=== PATIENT | female | born 1990 | race African-American/Black ===

== ENCOUNTER 2017-06-28 08:21 | Inpatient (IN) | payer MEDICAID, OTHER ==
[~2017-06-28] VITALS: Ht 180.3 cm; Wt 64.6 kg
[~2017-06-28 08:21] MED LIST: DIVA500T52 PO; LORA1TAB3 PO; OLAN10TA3 PO
[2017-06-28 09:00] LABS: ANION GAP 12 mmol/L (8-16); CALCIUM, TOTAL 9.4 mg/dL (8.8-10.5); CARBON DIOXIDE 24 mmol/L (22-29); CHLORIDE 105 mmol/L (98-107); CREATININE 0.91 mg/dL (0.60-1.30); GLOMERULAR FILTR. RATE CALC > 60 mL/min (>60); POTASSIUM 3.6 mmol/L (3.5-5.1); SODIUM SERUM 141 mmol/L (136-145); UREA NITROGEN, BLOOD 15 mg/dL (7-18)
[2017-06-28 09:06] LABS: ALANINE AMINOTRANSFERASE 22 U/L (12-78); ALBUMIN 4.7 g/dL (3.4-5.0); ASPARTATE AMINOTRANSFERASE 24 U/L (15-37); BILIRUBIN,TOTAL 0.6 mg/dL (0.1-1.0)
[2017-06-28 09:17] LABS: BASOPHILS % (AUTO) 0.1 % (0.0-2.0); EOSINOPHILS % (AUTO) 0.1 % (1.0-6.0); HEMATOCRIT 39.8 % (36-46); HEMOGLOBIN 13.6 g/dL (12.0-16.0); LYMPHOCYTES # (AUTO) 3.5 K/uL (1.0-4.8); LYMPHOCYTES % (AUTO) 27.3 % (22.0-44.0); MEAN CORPUSCULAR HEMOGLOBIN 28.7 pg (26.0-34.0); MEAN CORPUSCULAR HGB CONC 34.2 G/dL (31.0-37.0); MEAN CORPUSCULAR VOLUME 84 fL (80-100); MONOCYTES # (AUTO) 0.9 K/uL (0.1-1.0); MONOCYTES % (AUTO) 6.9 % (2.0-9.0); NEUTROPHILS # (AUTO) 8.4 K/uL (1.8-7.7); NEUTROPHILS % (AUTO) 65.6 % (40.0-70.0); PLATELET COUNT (AUTO) 370 K/uL (150-450); RED BLOOD CELL COUNT(AUTO) 4.74 MIL/uL (4.00-5.20); WHITE BLOOD COUNT (AUTO) 12.8 K/uL (4.5-11.0)
[2017-06-28 09:37] LABS: VALPROIC ACID 3 mcg/mL (50-100)
[2017-06-28] MEDS ORDERED: OLANZapine 5 MG TABLET PO ONE (09:45)
[2017-06-28] MEDS ORDERED: LORazepam 2 MG TABLET PO PRN (10:15)
[2017-06-28] MEDS ORDERED: HALOPERIDOL 5 MG TABLET PO PRN (10:15)
[2017-06-28] MEDS ORDERED: ZOLPIDEM TARTRATE 10 MG TABLET PO PRN (10:15)
[2017-06-28] MEDS ORDERED: INFLUENZA VIRUS VACCINE QVS 2017-18 (3YR+)/PF 60 MCG/0.5 ML SYRINGE IM ONE (15:00)
[2017-06-28 16:40] VITALS: BP 104/60
[2017-06-28] MEDS: DIVALPROEX SODIUM 500 MG ER TABLET PO SCH (20:30)
[2017-06-28] MEDS: OLANZapine 10 MG TABLET PO SCH (20:31)
[2017-06-29 06:29] VITALS: BP 106/60
[2017-06-29 08:19] LABS: BASOPHILS % (AUTO) 0.4 % (0.0-2.0); EOSINOPHILS % (AUTO) 2.3 % (1.0-6.0); HEMATOCRIT 36.4 % (36-46); HEMOGLOBIN 12.3 g/dL (12.0-16.0); LYMPHOCYTES % (AUTO) 46.3 % (22.0-44.0); MEAN CORPUSCULAR HEMOGLOBIN 28.6 pg (26.0-34.0); MEAN CORPUSCULAR HGB CONC 33.8 G/dL (31.0-37.0); MEAN CORPUSCULAR VOLUME 85 fL (80-100); MONOCYTES # (AUTO) 0.7 K/uL (0.1-1.0); MONOCYTES % (AUTO) 7.9 % (2.0-9.0); NEUTROPHILS # (AUTO) 3.7 K/uL (1.8-7.7); NEUTROPHILS % (AUTO) 43.1 % (40.0-70.0); PLATELET COUNT (AUTO) 268 K/uL (150-450); RED CELL DISTRIBUTION WIDTH 13.2 % (11.5-14.5); WHITE BLOOD COUNT (AUTO) 8.5 K/uL (4.5-11.0)
[2017-06-29 09:18] VITALS: BP 118/77
[2017-06-29 16:18] VITALS: BP 112/70
[2017-06-29] MEDS: DIVALPROEX SODIUM 500 MG ER TABLET PO SCH (20:27)
[2017-06-29] MEDS: OLANZapine 10 MG TABLET PO SCH (20:27)
[2017-06-30 01:17] VITALS: BP 103/63
[2017-06-30 09:05] VITALS: BP 100/60
[2017-06-30 16:04] VITALS: BP 104/62
[2017-06-30] MEDS: OLANZapine 10 MG TABLET PO SCH (20:17)
[2017-06-30] MEDS: DIVALPROEX SODIUM 500 MG ER TABLET PO SCH (20:17)
[2017-07-01 00:27] VITALS: BP 128/62
[2017-07-01 08:33] VITALS: BP 113/69
[2017-07-01 16:10] VITALS: BP 112/69
[2017-07-01] MEDS: DIVALPROEX SODIUM 500 MG ER TABLET PO SCH (20:53)
[2017-07-01] MEDS: OLANZapine 10 MG TABLET PO SCH (20:54)
[2017-07-02 01:22] VITALS: BP 110/69
[2017-07-02] MEDS: ACETAMINOPHEN 325 MG TABLET PO PRN ×2 (01:29→22:42)
[2017-07-02 08:21] VITALS: BP 121/62
[2017-07-02 16:14] VITALS: BP 105/60
[2017-07-02] MEDS: OLANZapine 10 MG TABLET PO SCH (20:26)
[2017-07-02] MEDS: DIVALPROEX SODIUM 500 MG ER TABLET PO SCH (20:26)
[2017-07-02 22:42] VITALS: BP 128/68
[2017-07-03 00:42] VITALS: BP 117/62
[2017-07-03 09:04] VITALS: BP 119/65
[2017-07-03 16:06] VITALS: BP 113/75
[2017-07-03] MEDS: DIVALPROEX SODIUM 500 MG ER TABLET PO SCH (21:02)
[2017-07-03] MEDS: OLANZapine 10 MG TABLET PO SCH (21:02)
[2017-07-04 00:58] VITALS: BP 110/61
[2017-07-04] MEDS: ACETAMINOPHEN 325 MG TABLET PO PRN (01:32)
[2017-07-04 08:57] VITALS: BP 120/63
[2017-07-04 16:36] VITALS: BP 119/73
[2017-07-04] MEDS: DIVALPROEX SODIUM 500 MG ER TABLET PO SCH (20:47)
[2017-07-04] MEDS: OLANZapine 10 MG TABLET PO SCH (20:47)
[2017-07-05 08:58] VITALS: BP 106/55
[2017-07-05 12:42] VITALS: BP 103/56
== END 2017-07-05 14:40 | disposition home or self-care (01) | DRG 750 ==
LOC: EMS 08:22 → B2S 13:19
DX: F20.0 Paranoid schizophrenia (principal); F15.20 Other stimulant dependence, uncomplicated; F12.20 Cannabis dependence, uncomplicated; F10.10 Alcohol abuse, uncomplicated; D72.829 Elevated white blood cell count, unspecified; F42.9 Obsessive-compulsive disorder, unspecified; F41.9 Anxiety disorder, unspecified; F17.210 Nicotine dependence, cigarettes, uncomplicated; Z71.41 Alcohol abuse counseling and surveillance of alcoholic; Z71.51 Drug abuse counseling and surveillance of drug abuser; Z71.6 Tobacco abuse counseling; Z28.21 Immunization not carried out because of patient refusal; Z81.8 Family history of other mental and behavioral disorders; Z81.1 Family history of alcohol abuse and dependence; Z81.3 Family history of other psychoactive substance abuse and dependence; Z79.899 Other long term (current) drug therapy
CPT/HCPCS: 90471; 99285; G0480

== ENCOUNTER 2017-08-04 18:47 | Inpatient (IN) | payer MEDICAID, OTHER ==
[~2017-08-04] VITALS: Ht 180.3 cm; Wt 63.9 kg
[~2017-08-04 18:47] MED LIST changes: -LORA1TAB3 PO
[2017-08-04 19:06] LABS: BASOPHILS % (AUTO) 0.9 % (0.0-2.0); EOSINOPHILS % (AUTO) 3.8 % (1.0-6.0); HEMATOCRIT 39.3 % (36-46); HEMOGLOBIN 13.4 g/dL (12.0-16.0); LYMPHOCYTES # (AUTO) 4.1 K/uL (1.0-4.8); LYMPHOCYTES % (AUTO) 52.9 % (22.0-44.0); MEAN CORPUSCULAR HEMOGLOBIN 28.6 pg (26.0-34.0); MEAN CORPUSCULAR HGB CONC 34.1 G/dL (31.0-37.0); MEAN CORPUSCULAR VOLUME 84 fL (80-100); MONOCYTES # (AUTO) 0.7 K/uL (0.1-1.0); MONOCYTES % (AUTO) 8.8 % (2.0-9.0); NEUTROPHILS # (AUTO) 2.6 K/uL (1.8-7.7); NEUTROPHILS % (AUTO) 33.6 % (40.0-70.0); PLATELET COUNT (AUTO) 345 K/uL (150-450); RED BLOOD CELL COUNT(AUTO) 4.67 MIL/uL (4.00-5.20); RED CELL DISTRIBUTION WIDTH 14.4 % (11.5-14.5); WHITE BLOOD COUNT (AUTO) 7.7 K/uL (4.5-11.0)
[2017-08-04 19:16] LABS: ANION GAP 6 mmol/L (8-16); CALCIUM, TOTAL 8.3 mg/dL (8.8-10.5); CARBON DIOXIDE 25 mmol/L (22-29); CHLORIDE 106 mmol/L (98-107); CREATININE 0.64 mg/dL (0.60-1.30); GLOMERULAR FILTR. RATE CALC > 60 mL/min (>60); POTASSIUM 4.4 mmol/L (3.5-5.1); SODIUM SERUM 137 mmol/L (136-145); UREA NITROGEN, BLOOD 19 mg/dL (7-18)
[2017-08-04 19:22] LABS: ALANINE AMINOTRANSFERASE 22 U/L (12-78); ALBUMIN 3.5 g/dL (3.4-5.0); ASPARTATE AMINOTRANSFERASE 21 U/L (15-37); BILIRUBIN,TOTAL 0.3 mg/dL (0.1-1.0); TOTAL PROTEIN, SERUM 6.4 g/dL (6.4-8.2)
[2017-08-04 19:33] LABS: VALPROIC ACID < 3 mcg/mL (50-100)
[2017-08-04] MEDS ORDERED: LORazepam 2 MG TABLET PO ONE (20:00)
[2017-08-04] MEDS ORDERED: HALOPERIDOL 5 MG TABLET PO ONE (20:00)
[2017-08-04] MEDS ORDERED: HALOPERIDOL 5 MG TABLET PO PRN (20:30)
[2017-08-04] MEDS ORDERED: ZOLPIDEM TARTRATE 10 MG TABLET PO PRN (20:30)
[2017-08-05 12:44] VITALS: BP 102/63
[2017-08-05 17:14] VITALS: BP 114/54
[2017-08-05] MEDS: LORazepam 2 MG TABLET PO PRN (17:50)
[2017-08-05] MEDS ORDERED: INFLUENZA VIRUS VACCINE QVS 2017-18 (3YR+)/PF 60 MCG/0.5 ML SYRINGE IM ONE (18:30)
[2017-08-05] MEDS: OLANZapine 10 MG TABLET PO SCH (20:38)
[2017-08-05] MEDS: DIVALPROEX SODIUM 500 MG ER TABLET PO SCH (20:38)
[2017-08-06 06:31] VITALS: BP 110/65
[2017-08-06 09:16] VITALS: BP 116/79
[2017-08-06 16:46] VITALS: BP 117/70
[2017-08-06] MEDS: OLANZapine 10 MG TABLET PO SCH (20:33)
[2017-08-06] MEDS: DIVALPROEX SODIUM 500 MG ER TABLET PO SCH (20:33)
[2017-08-07] MEDS: LORazepam 2 MG TABLET PO PRN (00:02)
[2017-08-07 00:07] VITALS: BP 123/67
[2017-08-07 08:44] VITALS: BP 118/64
[2017-08-07 16:50] VITALS: BP 111/82
[2017-08-07] MEDS: DIVALPROEX SODIUM 500 MG ER TABLET PO SCH (20:24)
[2017-08-07] MEDS: OLANZapine 10 MG TABLET PO SCH (20:25)
[2017-08-08 07:06] VITALS: BP 110/72
[2017-08-08 08:04] VITALS: BP 102/57
[2017-08-08 16:00] VITALS: BP 105/64
[2017-08-08] MEDS: DIVALPROEX SODIUM 500 MG ER TABLET PO SCH (20:06)
[2017-08-08] MEDS: OLANZapine 10 MG TABLET PO SCH (20:06)
[2017-08-09 06:20] VITALS: BP 100/63
[2017-08-09 09:00] VITALS: BP 110/68
[2017-08-09 16:05] VITALS: BP 112/73
[2017-08-09] MEDS: OLANZapine 10 MG TABLET PO SCH (20:16)
[2017-08-09] MEDS: DIVALPROEX SODIUM 500 MG ER TABLET PO SCH (20:16)
[2017-08-10 06:21] VITALS: BP 101/63
[2017-08-10 10:00] VITALS: BP 110/74
[2017-08-10 17:16] VITALS: BP 109/63
[2017-08-10] MEDS: OLANZapine 10 MG TABLET PO SCH (20:20)
[2017-08-10] MEDS: DIVALPROEX SODIUM 500 MG ER TABLET PO SCH (20:20)
[2017-08-11 16:17] VITALS: BP 119/73
[2017-08-11] MEDS: DIVALPROEX SODIUM 500 MG ER TABLET PO SCH (20:09)
[2017-08-11] MEDS: OLANZapine 10 MG TABLET PO SCH (20:10)
[2017-08-12 06:35] VITALS: BP 107/63
[2017-08-12 09:00] VITALS: BP 108/59
[2017-08-12 17:13] VITALS: BP 123/80
[2017-08-12] MEDS: DIVALPROEX SODIUM 500 MG ER TABLET PO SCH (20:14)
[2017-08-12] MEDS: OLANZapine 10 MG TABLET PO SCH (20:14)
[2017-08-13 06:52] VITALS: BP 106/66
[2017-08-13 08:30] VITALS: BP 102/67
[2017-08-13 16:26] VITALS: BP 117/67
[2017-08-13] MEDS: OLANZapine 10 MG TABLET PO SCH (20:15)
[2017-08-13] MEDS: DIVALPROEX SODIUM 500 MG ER TABLET PO SCH (20:16)
[2017-08-14 05:44] VITALS: BP 118/66
[2017-08-14 08:38] VITALS: BP 104/63
== END 2017-08-14 12:02 | disposition home or self-care (01) | DRG 750 ==
LOC: EMS 18:49 → AHU 08-05 12:06 → B3A 08-05 17:20
DX: F20.0 Paranoid schizophrenia (principal); Z59.0 Homelessness; F15.10 Other stimulant abuse, uncomplicated; F12.10 Cannabis abuse, uncomplicated; F42.9 Obsessive-compulsive disorder, unspecified; F17.210 Nicotine dependence, cigarettes, uncomplicated; F41.9 Anxiety disorder, unspecified; F10.10 Alcohol abuse, uncomplicated; Z71.6 Tobacco abuse counseling; Z79.899 Other long term (current) drug therapy; Z91.5 Personal history of self-harm
CPT/HCPCS: 87081; 99285; 99406; G0480

== ENCOUNTER 2017-09-24 12:26 | Inpatient (IN) | payer MEDICAID, OTHER ==
[~2017-09-24] VITALS: Ht 180.3 cm; Wt 62.9 kg
[2017-09-24 13:13] LABS: BASOPHILS % (AUTO) 0.9 % (0.0-2.0); EOSINOPHILS % (AUTO) 1.1 % (1.0-6.0); HEMATOCRIT 40.5 % (36-46); HEMOGLOBIN 13.3 g/dL (12.0-16.0); LYMPHOCYTES # (AUTO) 2.5 K/uL (1.0-4.8); LYMPHOCYTES % (AUTO) 38.9 % (22.0-44.0); MEAN CORPUSCULAR HEMOGLOBIN 28.4 pg (26.0-34.0); MEAN CORPUSCULAR HGB CONC 32.9 G/dL (31.0-37.0); MEAN CORPUSCULAR VOLUME 86 fL (80-100); MONOCYTES # (AUTO) 0.5 K/uL (0.1-1.0); MONOCYTES % (AUTO) 7.5 % (2.0-9.0); NEUTROPHILS # (AUTO) 3.3 K/uL (1.8-7.7); NEUTROPHILS % (AUTO) 51.6 % (40.0-70.0); PLATELET COUNT (AUTO) 357 K/uL (150-450); RED BLOOD CELL COUNT(AUTO) 4.69 MIL/uL (4.00-5.20); RED CELL DISTRIBUTION WIDTH 14.4 % (11.5-14.5)
[2017-09-24 13:33] LABS: AMPHET/METH SCREEN,URINE POSITIVE (NEGATIVE); BARBITURATE SCREEN, URINE NEGATIVE (NEGATIVE); BENZODIAZEPINES SCREEN,URINE NEGATIVE (NEGATIVE); CANNABINOID SCREEN,URINE POSITIVE (NEGATIVE); COCAINE SCREEN,URINE NEGATIVE (NEGATIVE); METHADONE SCREEN, URINE NEGATIVE (NEGATIVE); OPIATE SCREEN,URINE NEGATIVE (NEGATIVE); PHENCYCLIDINE SCREEN,URINE NEGATIVE (NEGATIVE)
[2017-09-24 13:34] LABS: ANION GAP 6 mmol/L (8-16); CALCIUM, TOTAL 8.5 mg/dL (8.8-10.5); CARBON DIOXIDE 28 mmol/L (22-29); CHLORIDE 105 mmol/L (98-107); CREATININE 0.69 mg/dL (0.60-1.30); GLOMERULAR FILTR. RATE CALC > 60 mL/min (>60); GLUCOSE,RANDOM 89 mg/dL (70-110); SODIUM SERUM 139 mmol/L (136-145); UREA NITROGEN, BLOOD 10 mg/dL (7-18)
[2017-09-24 13:36] LABS: ALANINE AMINOTRANSFERASE 26 U/L (12-78); ALBUMIN 3.7 g/dL (3.4-5.0); ALKALINE PHOSPHATASE 55 U/L (46-116); ASPARTATE AMINOTRANSFERASE 16 U/L (15-37); BILIRUBIN,TOTAL 0.6 mg/dL (0.1-1.0); TOTAL PROTEIN, SERUM 6.7 g/dL (6.4-8.2)
[2017-09-24 13:49] LABS: VALPROIC ACID < 3 mcg/mL (50-100)
[2017-09-24] MEDS ORDERED: ZOLPIDEM TARTRATE 10 MG TABLET PO PRN (14:00)
[2017-09-24] MEDS ORDERED: HALOPERIDOL 5 MG TABLET PO PRN (14:00)
[2017-09-24 18:02] VITALS: BP 111/66
[2017-09-25 09:01] LABS: CHOL/HDL RATIO 3.3 (3.9-5.7)
[2017-09-25 16:19] VITALS: BP 116/70
[2017-09-25] MEDS: RisperiDONE 1 MG TABLET PO SCH (16:24)
[2017-09-25] MEDS: LORazepam 2 MG TABLET PO PRN (16:24)
[2017-09-26] MEDS: RisperiDONE 1 MG TABLET PO SCH ×2 (08:46→16:06)
[2017-09-26] MEDS: LORazepam 2 MG TABLET PO PRN (09:39)
[2017-09-26 09:46] VITALS: BP 116/66
[2017-09-26 16:31] VITALS: BP 105/73
[2017-09-27 07:17] VITALS: BP 112/62
[2017-09-27] MEDS: RisperiDONE 1 MG TABLET PO SCH ×2 (08:20→16:00)
[2017-09-27 09:00] VITALS: BP 94/75
[2017-09-27] MEDS ORDERED: RISP1 PO ×2 (10:52→10:53)
[2017-09-27 16:05] VITALS: BP 116/72
== END 2017-09-27 16:50 | disposition home or self-care (01) | DRG 750 ==
LOC: EMS 12:27 → B3A 16:51
PROVIDERS: ADMIT Psychiatry & Neurology Psychiatry; ATTEND Psychiatry & Neurology Psychiatry
DX: F20.0 Paranoid schizophrenia (principal); F15.20 Other stimulant dependence, uncomplicated; F10.10 Alcohol abuse, uncomplicated; F17.200 Nicotine dependence, unspecified, uncomplicated; F42.9 Obsessive-compulsive disorder, unspecified; Z79.899 Other long term (current) drug therapy; Z91.19 Patient's noncompliance with other medical treatment and regimen; Z71.6 Tobacco abuse counseling; Z71.41 Alcohol abuse counseling and surveillance of alcoholic; Z71.51 Drug abuse counseling and surveillance of drug abuser
CPT/HCPCS: 99285; G0480

== ENCOUNTER 2017-10-13 11:32 | Inpatient (IN) | payer MEDICAID, OTHER ==
[~2017-10-13] VITALS: Ht 185.4 cm; Wt 63.4 kg
[~2017-10-13 11:32] MED LIST changes: -DIVA500T52 PO; -OLAN10TA3 PO; +RISP1 PO
[2017-10-13 12:00] LABS: RED BLOOD CELL COUNT(AUTO) 4.85 MIL/uL (4.00-5.20)
[2017-10-13] MEDS ORDERED: HALOPERIDOL LACTATE 5 MG/ML VIAL IM ONE (12:00)
[2017-10-13] MEDS ORDERED: DiphenhydrAMINE HCL 50 MG/ML VIAL IM ONE (12:00)
[2017-10-13] MEDS ORDERED: LORazepam 2 MG/ML VIAL IM ONE (12:00)
[2017-10-13 12:01] LABS: BASOPHILS % (AUTO) 0.2 % (0.0-2.0); EOSINOPHILS % (AUTO) 0.2 % (1.0-6.0); HEMATOCRIT 40.5 % (36-46); HEMOGLOBIN 13.7 g/dL (12.0-16.0); LYMPHOCYTES # (AUTO) 2.9 K/uL (1.0-4.8); LYMPHOCYTES % (AUTO) 29.2 % (22.0-44.0); MEAN CORPUSCULAR HEMOGLOBIN 28.2 pg (26.0-34.0); MEAN CORPUSCULAR HGB CONC 33.8 G/dL (31.0-37.0); MEAN CORPUSCULAR VOLUME 83 fL (80-100); MONOCYTES # (AUTO) 0.9 K/uL (0.1-1.0); MONOCYTES % (AUTO) 9.1 % (2.0-9.0); NEUTROPHILS # (AUTO) 6.1 K/uL (1.8-7.7); NEUTROPHILS % (AUTO) 61.3 % (40.0-70.0); PLATELET COUNT (AUTO) 385 K/uL (150-450); RED CELL DISTRIBUTION WIDTH 13.5 % (11.5-14.5)
[2017-10-13 12:27] LABS: ANION GAP 12 mmol/L (8-16); CALCIUM, TOTAL 9.4 mg/dL (8.8-10.5); CARBON DIOXIDE 27 mmol/L (22-29); CHLORIDE 104 mmol/L (98-107); CREATININE 0.63 mg/dL (0.60-1.30); GLOMERULAR FILTR. RATE CALC > 60 mL/min (>60); GLUCOSE,RANDOM 100 mg/dL (70-110); POTASSIUM 3.8 mmol/L (3.5-5.1); SODIUM SERUM 143 mmol/L (136-145); UREA NITROGEN, BLOOD 14 mg/dL (7-18)
[2017-10-13 12:34] LABS: ALANINE AMINOTRANSFERASE 34 U/L (12-78); ALBUMIN 4.6 g/dL (3.4-5.0); ALKALINE PHOSPHATASE 57 U/L (46-116); ASPARTATE AMINOTRANSFERASE 26 U/L (15-37); BILIRUBIN,TOTAL 0.6 mg/dL (0.1-1.0); TOTAL PROTEIN, SERUM 8.1 g/dL (6.4-8.2)
[2017-10-13] MEDS ORDERED: HALOPERIDOL 5 MG TABLET PO PRN (12:45)
[2017-10-13] MEDS ORDERED: ZOLPIDEM TARTRATE 10 MG TABLET PO PRN (12:45)
[2017-10-13 12:51] LABS: HCG,QUANTITATIVE < 1 mIU/mL (0-6)
[2017-10-13 12:54] LABS: HCG,QUAL RESULT NEGATIVE (NEGATIVE)
[2017-10-13 12:58] LABS: AMPHET/METH SCREEN,URINE POSITIVE (NEGATIVE); BARBITURATE SCREEN, URINE NEGATIVE (NEGATIVE); BENZODIAZEPINES SCREEN,URINE NEGATIVE (NEGATIVE); CANNABINOID SCREEN,URINE POSITIVE (NEGATIVE); COCAINE SCREEN,URINE NEGATIVE (NEGATIVE); METHADONE SCREEN, URINE NEGATIVE (NEGATIVE); OPIATE SCREEN,URINE NEGATIVE (NEGATIVE)
[2017-10-13 13:00] LABS: PHENCYCLIDINE SCREEN,URINE NEGATIVE (NEGATIVE)
[2017-10-13 14:40] VITALS: BP 112/70
[2017-10-14 08:02] VITALS: BP 116/63
[2017-10-14 08:07] LABS: FREE T4 (FREE THYROXINE) 1.08 ng/dL (0.76-1.46); THYROID STIMULATING HORMONE 1.54 uIU/mL (0.36-3.74)
[2017-10-14] MEDS: RisperiDONE 1 MG TABLET PO SCH ×2 (09:00→16:32)
[2017-10-14 16:00] VITALS: BP 110/67
[2017-10-14] MEDS: LORazepam 2 MG TABLET PO PRN (16:32)
[2017-10-14] MEDS ORDERED: IBUPROFEN 400 MG TABLET PO PRN (20:45)
[2017-10-15 08:10] VITALS: BP 100/60
[2017-10-15] MEDS: RisperiDONE 1 MG TABLET PO SCH ×2 (08:35→16:10)
[2017-10-15 16:05] VITALS: BP 110/76
[2017-10-16 02:35] VITALS: BP 100/61
[2017-10-16] MEDS: LORazepam 2 MG TABLET PO PRN (06:15)
[2017-10-16 08:18] VITALS: BP 102/61
[2017-10-16] MEDS: RisperiDONE 1 MG TABLET PO SCH (08:47)
[2017-10-16 16:06] VITALS: BP 146/80
[2017-10-16] MEDS: RisperiDONE 2 MG TABLET PO SCH (16:49)
[2017-10-17 06:17] VITALS: BP 109/84
[2017-10-17] MEDS: LORazepam 2 MG TABLET PO PRN ×2 (08:00→18:33)
[2017-10-17] MEDS: RisperiDONE 2 MG TABLET PO SCH ×3 (08:00→18:33)
[2017-10-17 08:24] VITALS: BP 118/72
[2017-10-17] MEDS: ACETAMINOPHEN 325 MG TABLET PO PRN ×2 (18:05→18:25)
[2017-10-18] MEDS: RisperiDONE 2 MG TABLET PO SCH (08:16)
[2017-10-18] MEDS ORDERED: RisperiDONE MICROSPHERES 25 MG/2 ML SYRINGE IM SCH (09:00)
[2017-10-18] MEDS ORDERED: RISPC25 IM (11:09)
== END 2017-10-18 11:55 | disposition home or self-care (01) | DRG 750 ==
LOC: EMS 11:35 → B3A 13:39
PROVIDERS: ADMIT Psychiatry & Neurology Psychiatry; ATTEND Psychiatry & Neurology Psychiatry
DX: F20.0 Paranoid schizophrenia (principal); Z91.19 Patient's noncompliance with other medical treatment and regimen; F15.10 Other stimulant abuse, uncomplicated; F10.10 Alcohol abuse, uncomplicated; F17.200 Nicotine dependence, unspecified, uncomplicated; F42.9 Obsessive-compulsive disorder, unspecified; F19.10 Other psychoactive substance abuse, uncomplicated
CPT/HCPCS: 84439; 84443; 87081; 96372; 99285; G0480; J1200; J1630; J2060; J2794

== ENCOUNTER 2018-10-29 09:16 | Inpatient (IN) | payer MEDICAID, OTHER ==
[~2018-10-29] VITALS: Ht 180.3 cm; Wt 66.3 kg
[~2018-10-29 09:16] MED LIST changes: +RISPC25 IM
[2018-10-29] MEDS ORDERED: DIVA-76 PO (09:57)
[2018-10-29] MEDS ORDERED: OLAN5TAB2 PO (09:57)
[2018-10-29 10:20] LABS: BASOPHILS % (AUTO) 0.3 % (0.0-2.0); EOSINOPHILS % (AUTO) 0.2 % (1.0-6.0); HEMATOCRIT 38.6 % (36-46); HEMOGLOBIN 13.1 g/dL (12.0-16.0); LYMPHOCYTES # (AUTO) 2.5 K/uL (1.0-4.8); LYMPHOCYTES % (AUTO) 29.2 % (22.0-44.0); MEAN CORPUSCULAR HEMOGLOBIN 29.1 pg (26.0-34.0); MEAN CORPUSCULAR HGB CONC 33.9 G/dL (31.0-37.0); MEAN CORPUSCULAR VOLUME 86 fL (80-100); MONOCYTES # (AUTO) 0.5 K/uL (0.1-1.0); MONOCYTES % (AUTO) 6.4 % (2.0-9.0); NEUTROPHILS # (AUTO) 5.4 K/uL (1.8-7.7); NEUTROPHILS % (AUTO) 63.9 % (40.0-70.0); PLATELET COUNT (AUTO) 246 K/uL (150-450); RED CELL DISTRIBUTION WIDTH 13.7 % (11.5-14.5)
[2018-10-29 10:38] LABS: AMPHET/METH SCREEN,URINE POSITIVE (NEGATIVE); BARBITURATE SCREEN, URINE NEGATIVE (NEGATIVE); BENZODIAZEPINES SCREEN,URINE NEGATIVE (NEGATIVE); CANNABINOID SCREEN,URINE POSITIVE (NEGATIVE); COCAINE SCREEN,URINE NEGATIVE (NEGATIVE); METHADONE SCREEN, URINE NEGATIVE (NEGATIVE); OPIATE SCREEN,URINE NEGATIVE (NEGATIVE)
[2018-10-29 10:46] LABS: ANION GAP 3 mmol/L (8-16); CALCIUM, TOTAL 8.8 mg/dL (8.8-10.5); CARBON DIOXIDE 30 mmol/L (22-29); CHLORIDE 104 mmol/L (98-107); CREATININE 0.71 mg/dL (0.60-1.30); GLOMERULAR FILTR. RATE CALC > 60 mL/min (>60); GLUCOSE,RANDOM 82 mg/dL (70-110); POTASSIUM 4.2 mmol/L (3.5-5.1); SODIUM SERUM 137 mmol/L (136-145); UREA NITROGEN, BLOOD 17 mg/dL (7-18)
[2018-10-29 10:46] LABS: PHENCYCLIDINE SCREEN,URINE NEGATIVE (NEGATIVE)
[2018-10-29 10:49] LABS: APPEARANCE,URINE CLOUDY (CLEAR); BILIRUBIN,URINE NEGATIVE (NEGATIVE); GLUCOSE, URINE (UA) NEGATIVE (NEGATIVE); KETONES,URINE NEGATIVE (NEGATIVE); LEUKOCYTE ESTERASE ,URINE NEGATIVE (NEGATIVE); NITRATE,URINE NEGATIVE (NEGATIVE); OCCULT BLOOD,URINE NEGATIVE (NEGATIVE); PROTEIN,URINE NEGATIVE (NEGATIVE); UROBILINOGEN,URINE 0.2 mg/dL (<=1.0)
[2018-10-29 10:53] LABS: ALANINE AMINOTRANSFERASE 15 U/L (12-78); ALBUMIN 3.5 g/dL (3.4-5.0); ALKALINE PHOSPHATASE 38 U/L (46-116); ASPARTATE AMINOTRANSFERASE 14 U/L (15-37); BILIRUBIN,TOTAL 0.3 mg/dL (0.1-1.0); TOTAL PROTEIN, SERUM 6.7 g/dL (6.4-8.2)
[2018-10-29 10:59] LABS: BACTERIA,URINE None Seen /HPF (None Seen); RBC,URINE None Seen /HPF (0-2); SQUAMOUS EPITHELIAL CELL,UR Many /LPF (None Seen); WBC,URINE None Seen /HPF (0-5)
[2018-10-29] MEDS ORDERED: ZOLPIDEM TARTRATE 10 MG TABLET PO PRN (11:00)
[2018-10-29] MEDS ORDERED: LORazepam 2 MG TABLET PO PRN (11:00)
[2018-10-29] MEDS ORDERED: HALOPERIDOL 5 MG TABLET PO PRN (11:00)
[2018-10-29 11:44] LABS: VALPROIC ACID 93 mcg/mL (50-100)
[2018-10-29 22:24] VITALS: BP 117/72
[2018-10-29] MEDS ORDERED: PNEUMOCOCCAL VACCINE POLYVALENT 0.5 ML VIAL [PPSV23] IM ONE (22:30)
[2018-10-30] MEDS ORDERED: IBUPROFEN 600 MG TABLET PO PRN (06:00)
[2018-10-30] MEDS ORDERED: ALBUTEROL SULFATE HFA 90 MCG/PUFF 8 GM INHALER IH PRN (06:00)
[2018-10-30] MEDS ORDERED: PETROLATUM,WHITE 71 GM JELLY TP PRN (06:00)
[2018-10-30] MEDS ORDERED: CloNIDine HCL 0.1 MG TABLET PO PRN (06:00)
[2018-10-30] MEDS ORDERED: MAGNESIUM HYDROXIDE SUSPENSION 30 ML UDCUP PO PRN (06:00)
[2018-10-30] MEDS ORDERED: ACETAMINOPHEN 325 MG TABLET PO PRN (06:00)
[2018-10-30] MEDS ORDERED: BENZOCAINE/MENTHOL LOZENGE MM PRN (06:00)
[2018-10-30] MEDS ORDERED: MAG HYDROX/AL HYDROX/SIMETH ES 30 ML SUSPENSION UDCUP PO PRN (06:00)
[2018-10-30] MEDS ORDERED: BACITRACIN 28.4 GM OINTMENT TP PRN (06:00)
[2018-10-30] MEDS ORDERED: ONDANSETRON HCL 4 MG TABLET PO PRN (06:00)
[2018-10-30] MEDS ORDERED: LOPERAMIDE HCL 2 MG CAPSULE PO PRN (06:00)
[2018-10-30 08:18] VITALS: BP 96/66
[2018-10-30] MEDS: OMEPRAZOLE 20 MG CAPSULE PO SCH (08:23)
[2018-10-30] MEDS: DOCUSATE SODIUM 100 MG CAPSULE PO SCH (08:23)
[2018-10-30] MEDS ORDERED: DIVALPROEX SODIUM 500 MG ER TABLET PO SCH (09:00)
[2018-10-30] MEDS ORDERED: OLANZapine 5 MG TABLET PO SCH (21:00)
[2018-10-30] MEDS ORDERED: OLANZapine 7.5 MG TABLET PO SCH (21:00)
[2018-10-31] MEDS: DOCUSATE SODIUM 100 MG CAPSULE PO SCH (08:13)
[2018-10-31] MEDS: OMEPRAZOLE 20 MG CAPSULE PO SCH (08:14)
[2018-10-31] MEDS: DIVALPROEX SODIUM 500 MG ER TABLET PO SCH (08:14)
[2018-10-31] MEDS ORDERED: NALT50TA PO (13:19)
[2018-10-31] MEDS ORDERED: OLAN7.5T9 PO (13:19)
[2018-10-31] MEDS ORDERED: DIVA500T52 PO (13:19)
[2018-10-31] MEDS ORDERED: OLANZapine 10 MG TABLET PO SCH (21:00)
[2018-11-01] MEDS: OMEPRAZOLE 20 MG CAPSULE PO SCH (08:11)
[2018-11-01] MEDS: DOCUSATE SODIUM 100 MG CAPSULE PO SCH (08:11)
[2018-11-01] MEDS: DIVALPROEX SODIUM 500 MG ER TABLET PO SCH (08:11)
[2018-11-01] MEDS ORDERED: DSS100 PO (09:19)
[2018-11-01] MEDS ORDERED: OMEP20 PO (09:19)
== END 2018-11-01 14:30 | disposition home or self-care (01) | DRG 750 ==
LOC: EMS 09:17 → 3EC 16:42
PROVIDERS: ADMIT Psychiatry & Neurology Psychiatry; ATTEND Psychiatry & Neurology Psychiatry
DX: F25.0 Schizoaffective disorder, bipolar type (principal); R45.851 Suicidal ideations; F39 Unspecified mood [affective] disorder; F17.200 Nicotine dependence, unspecified, uncomplicated; F41.9 Anxiety disorder, unspecified; F42.9 Obsessive-compulsive disorder, unspecified; G47.00 Insomnia, unspecified; K59.00 Constipation, unspecified; Z91.19 Patient's noncompliance with other medical treatment and regimen; Z53.20 Procedure and treatment not carried out because of patient's decision for unspecified reasons
CPT/HCPCS: 87081; G0480

== ENCOUNTER 2019-01-03 11:44 | Emergency (ER) | payer MEDICAID, OTHER ==
[~2019-01-03] VITALS: Ht 180.3 cm; Wt 66.3 kg
[~2019-01-03 11:44] MED LIST changes: +DIVA500T52 PO; +DSS100 PO; +NALT50TA PO; +OLAN7.5T9 PO; +OMEP20 PO; -RISP1 PO; -RISPC25 IM
[2019-01-03 11:50] VITALS: BP 143/76
== END 2019-01-03 13:05 | disposition home or self-care (01) ==
LOC: EMS 11:46
DX: L03.116 Cellulitis of left lower limb (principal); F19.10 Other psychoactive substance abuse, uncomplicated; F32.9 Major depressive disorder, single episode, unspecified; F20.9 Schizophrenia, unspecified; F17.210 Nicotine dependence, cigarettes, uncomplicated
CPT/HCPCS: 99406

== ENCOUNTER 2020-05-20 11:09 | Emergency (ER) | payer MEDICAID, OTHER ==
[~2020-05-20] VITALS: Ht 177.8 cm; Wt 75.0 kg
[~2020-05-20 11:09] MED LIST changes: +DIVA-80 PO; -DIVA500T52 PO
[2020-05-20] MEDS ORDERED: RISP2TAB23 PO (11:14)
[2020-05-20 13:17] LABS: BASOPHILS % (AUTO) 0.2 % (0.0-2.0); EOSINOPHILS % (AUTO) 0.3 % (1.0-6.0); HEMATOCRIT 38.9 % (36-46); HEMOGLOBIN 12.7 g/dL (12.0-16.0); LYMPHOCYTES # (AUTO) 2.4 K/uL (1.0-4.8); LYMPHOCYTES % (AUTO) 29.4 % (22.0-44.0); MEAN CORPUSCULAR HEMOGLOBIN 27.4 pg (26.0-34.0); MEAN CORPUSCULAR HGB CONC 32.6 G/dL (31.0-37.0); MEAN CORPUSCULAR VOLUME 84 fL (80-100); MONOCYTES # (AUTO) 0.4 K/uL (0.1-1.0); NEUTROPHILS # (AUTO) 5.3 K/uL (1.8-7.7); NEUTROPHILS % (AUTO) 65.1 % (40.0-70.0); PLATELET COUNT (AUTO) 281 K/uL (150-450); RED BLOOD CELL COUNT(AUTO) 4.63 MIL/uL (4.00-5.20); RED CELL DISTRIBUTION WIDTH 14.3 % (11.5-14.5)
[2020-05-20 13:25] LABS: ANION GAP 10 mmol/L (8-16); CALCIUM, TOTAL 8.7 mg/dL (8.8-10.5); CARBON DIOXIDE 24 mmol/L (22-29); CHLORIDE 102 mmol/L (98-107); CREATININE 0.63 mg/dL (0.60-1.30); GLOMERULAR FILTR. RATE CALC > 60 mL/min (>60); GLUCOSE,RANDOM 91 mg/dL (70-110); POTASSIUM 3.9 mmol/L (3.5-5.1); SODIUM SERUM 136 mmol/L (136-145); UREA NITROGEN, BLOOD 15 mg/dL (7-18)
[2020-05-20 13:38] LABS: ALANINE AMINOTRANSFERASE 20 U/L (12-78); ALKALINE PHOSPHATASE 51 U/L (46-116); ASPARTATE AMINOTRANSFERASE 12 U/L (15-37); BILIRUBIN,TOTAL 0.4 mg/dL (0.1-1.0); HCG,QUANTITATIVE 1 mIU/mL (0-6); TOTAL PROTEIN, SERUM 7.2 g/dL (6.4-8.2)
[2020-05-20 14:17] LABS: AMPHET/METH SCREEN,URINE NEGATIVE (NEGATIVE); BARBITURATE SCREEN, URINE NEGATIVE (NEGATIVE); BENZODIAZEPINES SCREEN,URINE NEGATIVE (NEGATIVE); CANNABINOID SCREEN,URINE POSITIVE (NEGATIVE); COCAINE SCREEN,URINE NEGATIVE (NEGATIVE); METHADONE SCREEN, URINE NEGATIVE (NEGATIVE); OPIATE SCREEN,URINE NEGATIVE (NEGATIVE)
[2020-05-20 14:18] LABS: PHENCYCLIDINE SCREEN,URINE NEGATIVE (NEGATIVE)
[2020-05-20 15:22] VITALS: BP 115/73
== END 2020-05-20 15:26 | disposition home or self-care (01) ==
LOC: EMS 11:15
DX: F20.9 Schizophrenia, unspecified (principal); F32.9 Major depressive disorder, single episode, unspecified; F17.210 Nicotine dependence, cigarettes, uncomplicated; Z79.899 Other long term (current) drug therapy
CPT/HCPCS: 36415; 80053; 80307; 84702; 85025; 99283; G0480

== ENCOUNTER 2020-12-31 18:13 | Inpatient (IN) | payer MEDICAID ==
[~2020-12-31] VITALS: Ht 172.7 cm; Wt 78.4 kg
[~2020-12-31 18:13] MED LIST changes: -DIVA-80 PO; -DSS100 PO; -NALT50TA PO; -OLAN7.5T9 PO; -OMEP20 PO; +RISP2TAB45 PO
[2020-12-31] MEDS ORDERED: HALOPERIDOL 5 MG TABLET PO ONE (18:45)
[2020-12-31] MEDS ORDERED: LORazepam 1 MG TABLET PO ONE (18:45)
[2020-12-31] MEDS ORDERED: ZOLPIDEM TARTRATE 10 MG TABLET PO PRN (19:15)
[2020-12-31 20:05] LABS: BASOPHILS % (AUTO) 0.3 % (0.0-2.0); EOSINOPHILS % (AUTO) 0.7 % (1.0-6.0); HEMATOCRIT 35.6 % (36-46); HEMOGLOBIN 11.7 g/dL (12.0-16.0); LYMPHOCYTES # (AUTO) 2.2 K/uL (1.0-4.8); LYMPHOCYTES % (AUTO) 17.8 % (22.0-44.0); MEAN CORPUSCULAR HEMOGLOBIN 27.3 pg (26.0-34.0); MEAN CORPUSCULAR VOLUME 83 fL (80-100); MONOCYTES # (AUTO) 1.2 K/uL (0.1-1.0); MONOCYTES % (AUTO) 9.3 % (2.0-9.0); NEUTROPHILS # (AUTO) 8.9 K/uL (1.8-7.7); NEUTROPHILS % (AUTO) 71.9 % (40.0-70.0); PLATELET COUNT (AUTO) 318 K/uL (150-450); RED CELL DISTRIBUTION WIDTH 13.5 % (11.5-14.5)
[2020-12-31 20:15] LABS: ANION GAP 11 mmol/L (8-16); CALCIUM, TOTAL 8.6 mg/dL (8.8-10.5); CARBON DIOXIDE 25 mmol/L (22-29); CHLORIDE 104 mmol/L (98-107); CREATININE 0.53 mg/dL (0.60-1.30); GLOMERULAR FILTR. RATE CALC > 60 mL/min (>60); GLUCOSE,RANDOM 89 mg/dL (70-110); POTASSIUM 3.5 mmol/L (3.5-5.1); SODIUM SERUM 140 mmol/L (136-145); UREA NITROGEN, BLOOD 10 mg/dL (7-18)
[2020-12-31 20:21] LABS: ALANINE AMINOTRANSFERASE 16 U/L (12-78); ALBUMIN 3.4 g/dL (3.4-5.0); ALKALINE PHOSPHATASE 62 U/L (46-116); ASPARTATE AMINOTRANSFERASE 12 U/L (15-37); BILIRUBIN,TOTAL 0.3 mg/dL (0.1-1.0); TOTAL PROTEIN, SERUM 6.5 g/dL (6.4-8.2)
[2020-12-31 21:50] LABS: COVID AG,FIA SOURCE NASOPHARYNGEAL
[2020-12-31 22:37] VITALS: BP 124/82
[2021-01-01 07:12] LABS: CHOL/HDL RATIO 3.6 (3.9-5.7)
[2021-01-01 08:00] VITALS: BP 111/76
[2021-01-01] MEDS ORDERED: ALBUTEROL SULFATE HFA 90 MCG/PUFF 8 GM INHALER IH PRN (16:15)
[2021-01-01] MEDS ORDERED: ACETAMINOPHEN 325 MG TABLET PO PRN (16:15)
[2021-01-01] MEDS ORDERED: GuaiFENesin/D-METHORPHAN [SUGAR-FREE] 200-20MG/10 ML SYRUP UDCUP PO PRN (16:15)
[2021-01-01] MEDS ORDERED: CloNIDine HCL 0.1 MG TABLET PO PRN (16:15)
[2021-01-01] MEDS ORDERED: PETROLATUM,WHITE 28 GM JELLY TP PRN (16:15)
[2021-01-01] MEDS ORDERED: NICOTINE 14 MG/24 HOUR PATCH TD PRN (16:15)
[2021-01-01] MEDS ORDERED: LOPERAMIDE HCL 2 MG CAPSULE PO PRN (16:15)
[2021-01-01] MEDS ORDERED: IBUPROFEN 400 MG TABLET PO PRN (16:15)
[2021-01-01] MEDS ORDERED: ONDANSETRON HCL 4 MG TABLET PO PRN (16:15)
[2021-01-01] MEDS ORDERED: DOCUSATE SODIUM 100 MG CAPSULE PO PRN (16:15)
[2021-01-01] MEDS ORDERED: MAG HYDROX/AL HYDROX/SIMETH ES 30 ML SUSPENSION UDCUP PO PRN (16:15)
[2021-01-01] MEDS ORDERED: MAGNESIUM HYDROXIDE SUSPENSION 30 ML UDCUP PO PRN (16:15)
[2021-01-01] MEDS: OLANZapine 5 MG TABLET PO SCH (16:49)
[2021-01-01] MEDS: GABAPENTIN 300 MG CAPSULE PO SCH (16:49)
[2021-01-01] MEDS: LORazepam 2 MG TABLET PO PRN (17:27)
[2021-01-02] MEDS: GABAPENTIN 300 MG CAPSULE PO SCH ×2 (08:12→17:51)
[2021-01-02] MEDS: LORazepam 2 MG TABLET PO PRN (08:12)
[2021-01-02] MEDS: OLANZapine 5 MG TABLET PO SCH ×2 (08:12→17:50)
[2021-01-02 15:30] VITALS: BP 118/71
[2021-01-02 16:51] VITALS: BP 118/71
[2021-01-03] MEDS: GABAPENTIN 300 MG CAPSULE PO SCH ×2 (08:07→16:49)
[2021-01-03] MEDS: OLANZapine 5 MG TABLET PO SCH ×2 (08:07→16:49)
[2021-01-03 16:23] VITALS: BP 121/71
[2021-01-04 05:57] LABS: BASOPHILS % (AUTO) 0.2 % (0.0-2.0); HEMATOCRIT 38.8 % (36-46); HEMOGLOBIN 12.9 g/dL (12.0-16.0); LYMPHOCYTES % (AUTO) 33.3 % (22.0-44.0); MEAN CORPUSCULAR HEMOGLOBIN 27.6 pg (26.0-34.0); MEAN CORPUSCULAR HGB CONC 33.2 G/dL (31.0-37.0); MEAN CORPUSCULAR VOLUME 83 fL (80-100); MONOCYTES # (AUTO) 0.9 K/uL (0.1-1.0); MONOCYTES % (AUTO) 9.7 % (2.0-9.0); NEUTROPHILS # (AUTO) 4.8 K/uL (1.8-7.7); NEUTROPHILS % (AUTO) 54.8 % (40.0-70.0); PLATELET COUNT (AUTO) 305 K/uL (150-450); RED BLOOD CELL COUNT(AUTO) 4.66 MIL/uL (4.00-5.20); RED CELL DISTRIBUTION WIDTH 13.7 % (11.5-14.5)
[2021-01-04] MEDS: GABAPENTIN 300 MG CAPSULE PO SCH ×2 (09:12→16:24)
[2021-01-04] MEDS: OLANZapine 5 MG TABLET PO SCH ×2 (09:12→16:24)
[2021-01-04 16:07] VITALS: BP 95/60
[2021-01-04] MEDS: LORazepam 2 MG TABLET PO PRN (19:52)
[2021-01-05] MEDS: GABAPENTIN 300 MG CAPSULE PO SCH ×2 (08:08→16:40)
[2021-01-05] MEDS: OLANZapine 5 MG TABLET PO SCH ×2 (08:08→16:40)
[2021-01-05 15:32] VITALS: BP 126/81
[2021-01-06] MEDS: OLANZapine 5 MG TABLET PO SCH ×2 (08:35→16:12)
[2021-01-06] MEDS: GABAPENTIN 300 MG CAPSULE PO SCH ×2 (08:35→16:13)
[2021-01-06 16:45] VITALS: BP 111/65
[2021-01-07] MEDS: LORazepam 2 MG TABLET PO PRN (08:10)
[2021-01-07] MEDS: GABAPENTIN 300 MG CAPSULE PO SCH ×2 (08:11→16:14)
[2021-01-07] MEDS: OLANZapine 5 MG TABLET PO SCH ×2 (08:11→16:14)
[2021-01-07 16:00] VITALS: BP 131/71
[2021-01-08] MEDS: OLANZapine 5 MG TABLET PO SCH ×2 (07:40→16:30)
[2021-01-08] MEDS: GABAPENTIN 300 MG CAPSULE PO SCH ×2 (07:40→16:30)
[2021-01-08 08:23] VITALS: BP 96/65
[2021-01-08 16:59] VITALS: BP 128/81
[2021-01-09] MEDS: GABAPENTIN 300 MG CAPSULE PO SCH ×2 (07:37→16:15)
[2021-01-09] MEDS: HALOPERIDOL 5 MG TABLET PO PRN (07:38)
[2021-01-09] MEDS: OLANZapine 5 MG TABLET PO SCH ×2 (07:38→16:14)
[2021-01-09 09:15] VITALS: BP 120/78
[2021-01-09] MEDS: LORazepam 2 MG TABLET PO PRN (16:12)
[2021-01-09 17:44] LABS: COVID AG,FIA SOURCE NASOPHARYNGEAL
[2021-01-09 18:32] VITALS: BP 130/76
[2021-01-10 08:00] VITALS: BP 106/73
[2021-01-10] MEDS: OLANZapine 5 MG TABLET PO SCH ×2 (13:20→16:39)
[2021-01-10] MEDS: GABAPENTIN 300 MG CAPSULE PO SCH ×2 (13:33→16:38)
[2021-01-10] MEDS: LORazepam 2 MG TABLET PO PRN (15:46)
[2021-01-10 17:20] VITALS: BP 114/77
[2021-01-11 08:00] VITALS: BP 111/66
[2021-01-11] MEDS: GABAPENTIN 300 MG CAPSULE PO SCH ×2 (09:15→17:12)
[2021-01-11] MEDS: OLANZapine 5 MG TABLET PO SCH ×2 (09:15→17:12)
[2021-01-11 16:45] VITALS: BP 126/78
[2021-01-11] MEDS: LORazepam 2 MG TABLET PO PRN (17:12)
[2021-01-12 08:00] VITALS: BP 131/60
[2021-01-12] MEDS: GABAPENTIN 300 MG CAPSULE PO SCH ×2 (09:47→16:03)
[2021-01-12] MEDS: OLANZapine 5 MG TABLET PO SCH ×2 (09:47→16:03)
[2021-01-12] MEDS: HALOPERIDOL 5 MG TABLET PO PRN (09:47)
[2021-01-12] MEDS: LORazepam 2 MG TABLET PO PRN (16:03)
[2021-01-12 17:19] VITALS: BP 121/71
[2021-01-13 08:00] VITALS: BP 130/93
[2021-01-13] MEDS: OLANZapine 5 MG TABLET PO SCH ×2 (08:24→16:22)
[2021-01-13] MEDS: GABAPENTIN 300 MG CAPSULE PO SCH ×2 (08:24→16:22)
[2021-01-13] MEDS: LORazepam 2 MG TABLET PO PRN (15:44)
[2021-01-13 16:41] VITALS: BP 105/69
[2021-01-14 08:00] VITALS: BP 114/79
[2021-01-14] MEDS: OLANZapine 5 MG TABLET PO SCH ×2 (08:28→15:56)
[2021-01-14] MEDS: HALOPERIDOL 5 MG TABLET PO PRN (08:28)
[2021-01-14] MEDS: GABAPENTIN 300 MG CAPSULE PO SCH ×2 (08:28→15:56)
[2021-01-14] MEDS: LORazepam 2 MG TABLET PO PRN (15:56)
[2021-01-14 16:22] VITALS: BP 107/73
[2021-01-15 08:00] VITALS: BP 108/73
[2021-01-15] MEDS: OLANZapine 5 MG TABLET PO SCH ×2 (10:08→16:19)
[2021-01-15] MEDS: GABAPENTIN 300 MG CAPSULE PO SCH ×2 (10:08→16:19)
[2021-01-15 16:11] VITALS: BP 125/90
[2021-01-15] MEDS: LORazepam 2 MG TABLET PO PRN (16:19)
[2021-01-16 08:00] VITALS: BP 118/73
[2021-01-16] MEDS: OLANZapine 5 MG TABLET PO SCH ×2 (08:40→16:12)
[2021-01-16] MEDS: GABAPENTIN 300 MG CAPSULE PO SCH ×2 (08:40→16:11)
[2021-01-16] MEDS: LORazepam 2 MG TABLET PO PRN (08:40)
[2021-01-16 16:41] VITALS: BP 126/79
[2021-01-16 18:22] LABS: COVID AG,FIA SOURCE NASOPHARYNGEAL
[2021-01-17 08:17] VITALS: BP 137/64
[2021-01-17] MEDS: OLANZapine 5 MG TABLET PO SCH ×2 (08:59→18:08)
[2021-01-17] MEDS: LORazepam 2 MG TABLET PO PRN (08:59)
[2021-01-17] MEDS: GABAPENTIN 300 MG CAPSULE PO SCH ×2 (08:59→18:08)
[2021-01-18] MEDS: OLANZapine 5 MG TABLET PO SCH ×2 (08:12→16:06)
[2021-01-18] MEDS: GABAPENTIN 300 MG CAPSULE PO SCH ×2 (08:12→16:06)
[2021-01-18] MEDS ORDERED: GABA-1181 PO (12:13)
[2021-01-18] MEDS ORDERED: OLAN5TAB2 PO (12:14)
[2021-01-18 16:28] VITALS: BP 132/88
== END 2021-01-18 17:45 | disposition home or self-care (01) | DRG 750 ==
LOC: EMS 18:13 → 3EC 19:08 → 3EI 01-17 16:15
PROVIDERS: ADMIT Psychiatry & Neurology Psychiatry; ATTEND Psychiatry & Neurology Psychiatry
DX: F20.0 Paranoid schizophrenia (principal); Z59.0 Homelessness; D72.829 Elevated white blood cell count, unspecified; F15.90 Other stimulant use, unspecified, uncomplicated; F31.9 Bipolar disorder, unspecified; F42.9 Obsessive-compulsive disorder, unspecified; F41.9 Anxiety disorder, unspecified; K21.9 Gastro-esophageal reflux disease without esophagitis; Z87.891 Personal history of nicotine dependence; Z20.822 Contact with and (suspected) exposure to COVID-19
CPT/HCPCS: 80053; 80061; 84703; 85025; 87426; 99285; G0480

== ENCOUNTER 2021-04-18 16:45 | Inpatient (IN) | payer MEDICAID ==
[~2021-04-18] VITALS: Ht 175.3 cm; Wt 82.2 kg
[~2021-04-18 16:45] MED LIST changes: +GABA-1181 PO; +OLAN5TAB52 PO; -RISP2TAB45 PO
[2021-04-18] MEDS ORDERED: HALOPERIDOL LACTATE 5 MG/ML VIAL IM ONE (17:00)
[2021-04-18] MEDS ORDERED: DiphenhydrAMINE HCL 50 MG/ML VIAL IM ONE (17:00)
[2021-04-18] MEDS ORDERED: LORazepam 2 MG/ML VIAL IM ONE (17:00)
[2021-04-18 17:26] LABS: COVID AG,FIA SOURCE NASOPHARYNGEAL
[2021-04-18 17:28] LABS: BASOPHILS % (AUTO) 0.4 % (0.0-2.0); EOSINOPHILS % (AUTO) 2.3 % (1.0-6.0); HEMATOCRIT 38.8 % (36-46); LYMPHOCYTES # (AUTO) 3.1 K/uL (1.0-4.8); LYMPHOCYTES % (AUTO) 29.2 % (22.0-44.0); MEAN CORPUSCULAR HEMOGLOBIN 27.5 pg (26.0-34.0); MEAN CORPUSCULAR HGB CONC 33.4 G/dL (31.0-37.0); MEAN CORPUSCULAR VOLUME 82 fL (80-100); MONOCYTES # (AUTO) 1.3 K/uL (0.1-1.0); MONOCYTES % (AUTO) 12.1 % (2.0-9.0); PLATELET COUNT (AUTO) 398 K/uL (150-450); RED BLOOD CELL COUNT(AUTO) 4.71 MIL/uL (4.00-5.20); RED CELL DISTRIBUTION WIDTH 13.4 % (11.5-14.5)
[2021-04-18 17:46] LABS: ALANINE AMINOTRANSFERASE 30 U/L (12-78); ALKALINE PHOSPHATASE 57 U/L (46-116); ANION GAP 12 mmol/L (8-16); ASPARTATE AMINOTRANSFERASE 23 U/L (15-37); BILIRUBIN,TOTAL 0.4 mg/dL (0.1-1.0); CALCIUM, TOTAL 9.1 mg/dL (8.8-10.5); CARBON DIOXIDE 26 mmol/L (22-29); CHLORIDE 105 mmol/L (98-107); CREATININE 0.84 mg/dL (0.60-1.30); GLOMERULAR FILTR. RATE CALC > 60 mL/min (>60); GLUCOSE,RANDOM 104 mg/dL (70-110); POTASSIUM 3.8 mmol/L (3.5-5.1); SODIUM SERUM 143 mmol/L (136-145); TOTAL PROTEIN, SERUM 7.5 g/dL (6.4-8.2)
[2021-04-18 17:53] LABS: UREA NITROGEN, BLOOD 21 mg/dL (7-18)
[2021-04-19 06:48] LABS: CHOL/HDL RATIO 3.2 (3.9-5.7)
[2021-04-19] MEDS ORDERED: ACETAMINOPHEN 325 MG TABLET PO PRN (07:15)
[2021-04-19] MEDS ORDERED: PETROLATUM,WHITE 28 GM JELLY TP PRN (07:15)
[2021-04-19] MEDS ORDERED: NICOTINE 14 MG/24 HOUR PATCH TD PRN (07:15)
[2021-04-19] MEDS ORDERED: GuaiFENesin/D-METHORPHAN [SUGAR-FREE] 200-20MG/10 ML SYRUP UDCUP PO PRN (07:15)
[2021-04-19] MEDS ORDERED: MAGNESIUM HYDROXIDE SUSPENSION 30 ML UDCUP PO PRN (07:15)
[2021-04-19] MEDS ORDERED: MAG HYDROX/AL HYDROX/SIMETH ES 30 ML SUSPENSION UDCUP PO PRN (07:15)
[2021-04-19] MEDS ORDERED: ALBUTEROL SULFATE HFA 90 MCG/PUFF 8 GM INHALER IH PRN (07:15)
[2021-04-19] MEDS ORDERED: ONDANSETRON HCL 4 MG TABLET PO PRN (07:15)
[2021-04-19] MEDS ORDERED: CloNIDine HCL 0.1 MG TABLET PO PRN (07:15)
[2021-04-19] MEDS ORDERED: DOCUSATE SODIUM 100 MG CAPSULE PO PRN (07:15)
[2021-04-19] MEDS ORDERED: IBUPROFEN 400 MG TABLET PO PRN (07:15)
[2021-04-19] MEDS ORDERED: LOPERAMIDE HCL 2 MG CAPSULE PO PRN (07:15)
[2021-04-19] MEDS: OLANZapine 5 MG TABLET PO SCH (20:16)
[2021-04-20] MEDS: OLANZapine 5 MG TABLET PO SCH ×2 (08:20→20:23)
[2021-04-20] MEDS: LORazepam 1 MG TABLET PO PRN (16:09)
[2021-04-21 08:13] VITALS: BP 108/70
[2021-04-21] MEDS: OLANZapine 5 MG TABLET PO SCH ×2 (08:46→20:36)
[2021-04-21] MEDS: LORazepam 1 MG TABLET PO PRN (15:57)
[2021-04-21 17:01] VITALS: BP 105/65
[2021-04-22] MEDS: OLANZapine 5 MG TABLET PO SCH (10:03)
[2021-04-22] MEDS: LORazepam 1 MG TABLET PO PRN (15:59)
[2021-04-22] MEDS: OLANZapine 7.5 MG TABLET PO SCH (20:11)
[2021-04-23 08:00] VITALS: BP 102/59
[2021-04-23] MEDS: OLANZapine 7.5 MG TABLET PO SCH ×3 (10:47→21:12)
[2021-04-23] MEDS: LORazepam 1 MG TABLET PO PRN (15:54)
[2021-04-23] MEDS: BACITRACIN 28 GM OINTMENT TP SCH (17:16)
[2021-04-23] MEDS: SULFAMETHOX/TRIMETH DS 800-160 MG/TABLET PO SCH (17:16)
[2021-04-23] MEDS: CEPHALEXIN MONOHYDRATE 500 MG CAPSULE PO SCH (17:16)
[2021-04-24] MEDS: CEPHALEXIN MONOHYDRATE 500 MG CAPSULE PO SCH ×3 (08:41→17:12)
[2021-04-24] MEDS: SULFAMETHOX/TRIMETH DS 800-160 MG/TABLET PO SCH ×2 (08:41→17:12)
[2021-04-24] MEDS: OLANZapine 7.5 MG TABLET PO SCH ×2 (08:41→20:31)
[2021-04-24] MEDS: BACITRACIN 28 GM OINTMENT TP SCH ×2 (09:57→17:12)
[2021-04-24] MEDS: HALOPERIDOL 5 MG TABLET PO PRN (12:21)
[2021-04-24] MEDS: LORazepam 1 MG TABLET PO PRN ×2 (12:21→17:13)
[2021-04-24] MEDS: ZOLPIDEM TARTRATE 10 MG TABLET PO PRN (20:31)
[2021-04-25] MEDS: OLANZapine 7.5 MG TABLET PO SCH ×2 (08:17→20:03)
[2021-04-25] MEDS: LORazepam 1 MG TABLET PO PRN ×2 (08:17→16:26)
[2021-04-25] MEDS: SULFAMETHOX/TRIMETH DS 800-160 MG/TABLET PO SCH ×2 (08:18→16:06)
[2021-04-25] MEDS: CEPHALEXIN MONOHYDRATE 500 MG CAPSULE PO SCH ×3 (08:18→16:06)
[2021-04-25] MEDS: HALOPERIDOL 5 MG TABLET PO PRN (09:55)
[2021-04-25] MEDS: BACITRACIN 28 GM OINTMENT TP SCH ×2 (10:18→16:06)
[2021-04-25 16:26] VITALS: BP 124/81
[2021-04-25 17:26] VITALS: BP 118/70
[2021-04-26] MEDS: BACITRACIN 28 GM OINTMENT TP SCH ×2 (08:48→17:14)
[2021-04-26] MEDS: SULFAMETHOX/TRIMETH DS 800-160 MG/TABLET PO SCH ×2 (08:49→17:00)
[2021-04-26] MEDS: CEPHALEXIN MONOHYDRATE 500 MG CAPSULE PO SCH ×3 (08:49→16:59)
[2021-04-26] MEDS: OLANZapine 7.5 MG TABLET PO SCH ×2 (08:49→21:44)
[2021-04-26] MEDS: HALOPERIDOL 5 MG TABLET PO PRN (17:00)
[2021-04-26] MEDS: ZOLPIDEM TARTRATE 10 MG TABLET PO PRN (21:44)
[2021-04-27] MEDS: SULFAMETHOX/TRIMETH DS 800-160 MG/TABLET PO SCH ×2 (09:04→16:01)
[2021-04-27] MEDS: BACITRACIN 28 GM OINTMENT TP SCH ×2 (09:05→16:02)
[2021-04-27] MEDS: OLANZapine 7.5 MG TABLET PO SCH ×2 (09:05→20:19)
[2021-04-27] MEDS: CEPHALEXIN MONOHYDRATE 500 MG CAPSULE PO SCH ×3 (09:05→16:01)
[2021-04-27] MEDS: LORazepam 1 MG TABLET PO PRN (16:01)
[2021-04-27] MEDS: HALOPERIDOL 5 MG TABLET PO PRN (20:20)
[2021-04-28] MEDS: SULFAMETHOX/TRIMETH DS 800-160 MG/TABLET PO SCH ×2 (09:21→16:13)
[2021-04-28] MEDS: CEPHALEXIN MONOHYDRATE 500 MG CAPSULE PO SCH ×3 (09:21→16:13)
[2021-04-28] MEDS: OLANZapine 7.5 MG TABLET PO SCH ×2 (09:21→20:32)
[2021-04-28] MEDS: BACITRACIN 28 GM OINTMENT TP SCH ×2 (09:21→16:16)
[2021-04-28] MEDS: LORazepam 1 MG TABLET PO PRN (16:13)
[2021-04-28 16:39] VITALS: BP 123/74
[2021-04-28] MEDS: HALOPERIDOL 5 MG TABLET PO PRN (20:32)
[2021-04-29] MEDS: OLANZapine 7.5 MG TABLET PO SCH ×2 (07:48→20:22)
[2021-04-29] MEDS: SULFAMETHOX/TRIMETH DS 800-160 MG/TABLET PO SCH ×2 (07:48→17:07)
[2021-04-29] MEDS: CEPHALEXIN MONOHYDRATE 500 MG CAPSULE PO SCH ×3 (07:49→17:07)
[2021-04-29] MEDS: BACITRACIN 28 GM OINTMENT TP SCH ×2 (07:49→17:08)
[2021-04-29] MEDS: LORazepam 1 MG TABLET PO PRN (15:43)
[2021-04-29 16:42] VITALS: BP 123/76
[2021-04-29] MEDS: HALOPERIDOL 5 MG TABLET PO PRN (20:22)
[2021-04-30] MEDS: BACITRACIN 28 GM OINTMENT TP SCH ×2 (09:34→16:25)
[2021-04-30] MEDS: OLANZapine 7.5 MG TABLET PO SCH ×2 (09:35→20:09)
[2021-04-30] MEDS: CEPHALEXIN MONOHYDRATE 500 MG CAPSULE PO SCH ×2 (09:36→13:37)
[2021-04-30] MEDS: SULFAMETHOX/TRIMETH DS 800-160 MG/TABLET PO SCH (09:36)
[2021-04-30 10:23] LABS: COVID AG,FIA SOURCE NASOPHARYNGEAL
[2021-04-30 16:00] VITALS: BP 116/76
[2021-04-30] MEDS: HALOPERIDOL 5 MG TABLET PO PRN (16:25)
[2021-04-30] MEDS: ZOLPIDEM TARTRATE 10 MG TABLET PO PRN (20:09)
[2021-05-01] MEDS: LORazepam 1 MG TABLET PO PRN ×2 (07:58→20:19)
[2021-05-01] MEDS: BACITRACIN 28 GM OINTMENT TP SCH ×2 (07:58→16:06)
[2021-05-01] MEDS: HALOPERIDOL 5 MG TABLET PO PRN ×2 (07:58→16:06)
[2021-05-01] MEDS: OLANZapine 7.5 MG TABLET PO SCH ×2 (07:58→20:19)
[2021-05-01 08:00] VITALS: BP 137/84
[2021-05-01 17:00] VITALS: BP 102/72
[2021-05-02 08:00] VITALS: BP 135/73
[2021-05-02] MEDS: OLANZapine 7.5 MG TABLET PO SCH ×2 (09:13→20:28)
[2021-05-02] MEDS: BACITRACIN 28 GM OINTMENT TP SCH ×2 (09:13→16:06)
[2021-05-02] MEDS: HALOPERIDOL 5 MG TABLET PO PRN (16:05)
[2021-05-02 16:13] VITALS: BP 116/65
[2021-05-02] MEDS: LORazepam 1 MG TABLET PO PRN (19:46)
[2021-05-03] MEDS: OLANZapine 7.5 MG TABLET PO SCH (08:12)
[2021-05-03] MEDS: HALOPERIDOL 5 MG TABLET PO PRN ×2 (08:12→16:36)
[2021-05-03] MEDS: LORazepam 1 MG TABLET PO PRN ×2 (08:12→16:36)
[2021-05-03] MEDS ORDERED: DiphenhydrAMINE/ZINC ACET 30 GM CREAM TP PRN (10:00)
[2021-05-03] MEDS: BACITRACIN 28 GM OINTMENT TP SCH ×2 (10:54→16:52)
[2021-05-03 16:42] VITALS: BP 141/76
[2021-05-03] MEDS: ZOLPIDEM TARTRATE 10 MG TABLET PO PRN (20:26)
[2021-05-03] MEDS: OLANZapine 10 MG TABLET PO SCH (20:26)
[2021-05-04] MEDS: BACITRACIN 28 GM OINTMENT TP SCH ×2 (08:12→17:00)
[2021-05-04] MEDS: OLANZapine 10 MG TABLET PO SCH ×2 (08:12→20:17)
[2021-05-04] MEDS: PredniSONE 20 MG TABLET PO SCH (08:12)
[2021-05-04] MEDS: HALOPERIDOL 5 MG TABLET PO PRN (15:45)
[2021-05-04] MEDS: LORazepam 1 MG TABLET PO PRN ×2 (15:59→20:17)
[2021-05-04 16:00] VITALS: BP 111/70
[2021-05-05] MEDS: PredniSONE 20 MG TABLET PO SCH (07:22)
[2021-05-05] MEDS: BACITRACIN 28 GM OINTMENT TP SCH (07:22)
[2021-05-05] MEDS: OLANZapine 10 MG TABLET PO SCH (07:22)
[2021-05-05] MEDS ORDERED: OLAN5TAB52 PO (09:24)
[2021-05-05] MEDS ORDERED: LORA10TA7 PO (14:04)
[2021-05-05] MEDS ORDERED: PRED-284 PO (14:06)
[2021-05-06] MEDS ORDERED: LORATADINE 10 MG TABLET PO SCH (09:00)
== END 2021-05-05 16:20 | disposition home or self-care (01) | DRG 750 ==
LOC: EMS 16:51 → 3EC 23:13
DX: F20.0 Paranoid schizophrenia (principal); G92 Toxic encephalopathy; E86.0 Dehydration; Z59.0 Homelessness; R45.851 Suicidal ideations; F17.210 Nicotine dependence, cigarettes, uncomplicated; Z20.822 Contact with and (suspected) exposure to COVID-19; R10.13 Epigastric pain; F42.9 Obsessive-compulsive disorder, unspecified
CPT/HCPCS: 80053; 80061; 85025; 99291; G0480; J1200; J1630; J2060